=== PATIENT | male | born 1970 | race Caucasian/White ===

== ENCOUNTER 2017-01-02 17:42 | Emergency (ER) | payer BC ==
[2017-01-02 18:35] VITALS: BP 147/105
--- NOTE | 2017-01-02 18:49 | UC ---
Ear Complaint HPI - HPI Summary HPI Summary: resent URI, had some nasal congestion and used erasmo pot--this afternoon increasing ear pain, righ maxillary sinus pain, and swollen lymph right side on jaw/neck - History of Current Complaint Chief Complaint: UCEar Stated Complaint: EAR ACHE Time Seen by Provider: 01/02/17 18:44 Hx Obtained From: Patient Onset/Duration: Gradual Onset, Lasting Days, Worse Since - today Severity Initially: Mild Severity Currently: Moderate Pain Intensity: 8 Pain Scale Used: 0-10 Numeric Aggravating Factors: Nothing Alleviating Factors: Nothing Associated Signs/Symptoms: Positive: Swelling @ - right anterior cervical lymph , URI Symptoms - Allergies/Home Medications Allergies/Adverse Reactions: Allergies Allergy/AdvReac Type Severity Reaction Status Date / Time Sulfa Antibiotics Allergy Eyes Verified 12/23/14 10:25 Itchy/Swollen/Red/Watery Home Medications: Home Medications [id number] [Nyquil Severe Cold/Flu 5-6.25-10-325 mg/15Ml] 1 liq PO 01/02/17 [History] PMH/Surg Hx/FS Hx/Imm Hx Previously Healthy: Yes Endocrine History Of: Denies: Diabetes, Thyroid Disease Cardiovascular History Of: Denies: Cardiac Disorders, Hypertension Respiratory History Of: Denies: COPD, Asthma GI/ History Of: Denies: Ulcer - Surgical History Surgical History: Yes Surgery Procedure, Year, and Place: ankle reconstruction; nasal fracture; wisdom teeth - Family History Known Family History: Positive: None Family History: no reported cardiovascular issues in family lineage - Social History Occupation: Employed Full-time Lives: With Family Alcohol Use: Weekly Substance Use Type: None Smoking Status (MU): Former Smoker Have You Smoked in the Last Year: No When Did the Patient Quit Smoking/Using Tobacco: 15 yrs Review of Systems Constitutional: Negative Skin: Negative Eyes: Negative ENT: Ear Ache - right Respiratory: Negative Cardiovascular: Negative Gastrointestinal: Negative Genitourinary: Negative Motor: Negative Neurovascular: Negative Musculoskeletal: Negative Neurological: Negative Psychological: Negative All Other Systems Reviewed And Are Negative: Yes Physical Exam Triage Information Reviewed: Yes Appearance: Well-Appearing, No Pain Distress, Well-Nourished Vital Signs: Initial Vital Signs Temp 97.6 F 01/02/17 18:31 Pulse 55 01/02/17 18:31 Resp 18 01/02/17 18:31 BP 147/105 01/02/17 18:31 Pulse Ox 98 01/02/17 18:31 Vital Signs Reviewed: Yes Eye Exam: Normal Eyes: Positive: Conjunctiva Clear ENT Exam: Normal - anterior cervical lymph swelling ENT: Positive: Normal ENT inspection, Hearing grossly normal, Pharynx normal, TMs normal, Other:. Negative: Nasal congestion, Nasal drainage, Tonsillar swelling, Tonsillar exudate, Trismus, Muffled/hoarse voice Dental Exam: Normal Neck exam: Normal Neck: Positive: Supple, Nontender, No Lymphadenopathy Respiratory Exam: Normal Respiratory: Positive: Chest non-tender, Lungs clear, Normal breath sounds, No respiratory distress, No accessory muscle use Cardiovascular Exam: Normal Cardiovascular: Positive: RRR, No Murmur, Pulses Normal, Brisk Capillary Refill Abdominal Exam: Normal Abdomen Description: Positive: Nontender, No Organomegaly, Soft Bowel Sounds: Positive: Present Musculoskeletal Exam: Normal Musculoskeletal: Positive: Strength Intact, ROM Intact, No Edema Neurological Exam: Normal Neurological: Positive: Alert, Muscle Tone Normal Psychological Exam: Normal Psychological: Positive: Normal Response To Family Skin Exam: Normal Ear Complaint Course/Dx - Course Course Of Treatment: amoxicillin, ibuprofen, hydrocodone, increase fluids follow with pcp re-check prn - Differential Dx/Diagnosis Differential Diagnosis/HQI/PQRI: Cellulitis, Otitis Externa, Otitis Media, URI, Other - anterior cervical lymphadenopathy Provider Diagnoses: Right anterior cervical lymphadenopathy Discharge - Discharge Plan Condition: Stable Disposition: HOME Prescriptions: Amoxicillin CAP* 500 mg PO TID #30 cap HYDROcodone/ACETAMIN 5-325 MG* [Thiells 5-325 TAB*] 1 tab PO Q6H PRN #10 tab MDD 4 PRN Reason: pain Patient Education Materials: Lymphadenopathy (ED), DASH Eating Plan (ED), Hypertension (ED) Referrals: Cody Newsome MD [Primary Care Provider] - 5 Days
== END 2017-01-02 19:40 | disposition home or self-care (01) ==
LOC: UCEAST 17:42
DX: R59.0 Localized enlarged lymph nodes (principal); Z88.2 Allergy status to sulfonamides; Z87.891 Personal history of nicotine dependence
CPT/HCPCS: 99212; G0463

== ENCOUNTER 2017-01-09 17:20 | Emergency (ER) | payer BC ==
--- NOTE | 2017-01-09 18:01 | UC ---
Throat Pain/Nasal Donald HPI - HPI Summary HPI Summary: Continues to have "pressure" and pain over tonsillar lymph node region of neck. Was seen here for same 1 week ago, put on amox 500mg TID. Sx persist, so coming back for a recheck. Had "flu" symptoms in the 2 weeks before initial visit, did not have flu swab done. - History of Current Complaint Chief Complaint: UCRespiratory Stated Complaint: SWOLLEN GLANDS Time Seen by Provider: 01/09/17 17:40 Hx Obtained From: Patient Onset/Duration: Gradual Onset, Lasting Days Severity: Mild Cough: None Associated Signs & Symptoms: Positive: FB Sensation - in throat - Allergies/Home Medications Allergies/Adverse Reactions: Allergies Allergy/AdvReac Type Severity Reaction Status Date / Time Sulfa Antibiotics Allergy Eyes Verified 01/09/17 17:49 Itchy/Swollen/Red/Watery KOM[place] Allergy Severe FACIAL Uncoded 01/09/17 17:49 SWELLING PMH/Surg Hx/FS Hx/Imm Hx Endocrine History Of: Denies: Diabetes, Thyroid Disease Cardiovascular History Of: Denies: Cardiac Disorders, Hypertension Respiratory History Of: Denies: COPD, Asthma GI/ History Of: Denies: Ulcer - Surgical History Surgical History: Yes Surgery Procedure, Year, and Place: ankle reconstruction; nasal fracture; wisdom teeth - Family History Known Family History: Positive: None Family History: no reported cardiovascular issues in family lineage - Social History Lives: With Family Alcohol Use: Occasionally Alcohol Amount: 4-5 BEERS/WEEK Substance Use Type: None Smoking Status (MU): Former Smoker Have You Smoked in the Last Year: No When Did the Patient Quit Smoking/Using Tobacco: 15 yrs Review of Systems Constitutional: Negative Skin: Negative Eyes: Negative ENT: Sore Throat Respiratory: Negative Cardiovascular: Negative Gastrointestinal: Negative Genitourinary: Negative Motor: Negative Neurovascular: Negative Musculoskeletal: Negative Neurological: Negative Psychological: Negative All Other Systems Reviewed And Are Negative: Yes Physical Exam Triage Information Reviewed: Yes Appearance: Well-Appearing, No Pain Distress, Well-Nourished Vital Signs: Initial Vital Signs Temp 97.6 F 01/09/17 17:42 Pulse 53 01/09/17 17:42 Resp 16 01/09/17 17:42 BP 162/111 01/09/17 17:42 Pulse Ox 98 01/09/17 17:42 Vital Signs Reviewed: Yes Eye Exam: Normal Eyes: Positive: Conjunctiva Clear ENT: Positive: Normal ENT inspection, Hearing grossly normal, Pharynx normal. Negative: Pharyngeal erythema, Nasal drainage, Tonsillar swelling, Tonsillar exudate Dental Exam: Normal Neck: Positive: Supple, No Lymphadenopathy, Tenderness @ - sensitive over tonsillar lymph nodes. While they were palpable, I did not appreciate any enlargement. Respiratory Exam: Normal Respiratory: Positive: Chest non-tender, Lungs clear, Normal breath sounds, No respiratory distress, No accessory muscle use Cardiovascular Exam: Normal Cardiovascular: Positive: RRR, No Murmur Musculoskeletal Exam: Normal Neurological Exam: Normal Psychological Exam: Normal Skin Exam: Normal Throat Pain/Nasal Course/Dx - Differential Dx/Diagnosis Provider Diagnoses: Cervical lymph node discomfort Discharge - Discharge Plan Condition: Stable Disposition: HOME Patient Education Materials: Lymphadenopathy (ED) Referrals: Cody Newsome MD [Primary Care Provider] - 4 Days Additional Instructions: In addition to your concerns about your painful lymph nodes, please discuss your elevated blood pressure readings with Dr. Newsome on Thursday. If your symptoms are not resolving on their own, you may need to see an ear, nose, and throat specialist for further care.
[2017-01-09 18:40] VITALS: BP 160/113
[2017-01-10 12:34] LABS: EBV Response YES
[2017-01-10 12:41] LABS: Hematocrit 46 % (42-52); Mean Corpuscular HGB Conc 35 g/dl (31-36); Mean Corpuscular Hemoglobin 30 pg (27-31); Mean Corpuscular Volume 85 fL (80-94); Mean Platelet Volume 9 um3 (7.4-10.4); Red Blood Count 5.39 10^6/ul (4.0-5.4); Red Cell Distribution Width 14 % (10.5-15); White Blood Count 6.3 10^3/ul (3.5-10.8)
[2017-01-10 12:49] LABS: Manual Entry Verification DOM0004; Mono Internal Control QC Line Present
[2017-01-10 12:52] LABS: Albumin 4.6 g/dL (3.2-5.2); BUN/Creatinine Ratio 20.4 (8-20); Calcium 9.6 mg/dL (8.6-10.3); EGFR African American 99.1 (>60); EGFR Non-African American 77.1 (>60); Globulin 2.4 g/dL (2-4); Potassium 4.3 mmol/L (3.5-5.0); Total Bilirubin 0.6 mg/dL (0.2-1.0)
[2017-01-13 12:35] LABS: EBV Capsid Ag IgG Ab Positive (Negative); EBV Capsid Ag IgM Ab Negative (Negative)
== END 2017-01-09 18:40 | disposition home or self-care (01) ==
LOC: UCEAST 17:20
DX: R59.0 Localized enlarged lymph nodes (principal); Z88.2 Allergy status to sulfonamides; Z87.891 Personal history of nicotine dependence
CPT/HCPCS: 36415; 80053; 85025; 86308; 86664; 86665; 87651; 99211; G0463

== ENCOUNTER 2017-02-28 12:54 | Emergency (ER) | payer BC ==
[2017-02-28 14:10] VITALS: BP 144/105
--- NOTE | 2017-02-28 15:02 | UC ---
Throat Pain/Nasal Donald HPI - HPI Summary HPI Summary: Recurrent pain and swelling in R neck at same place he has had painful lump on and off since early December. Was seen here twice in Dec for same thing. It nearly went away (but never completely), and has been getting worse over the last week or so. Also feeling pain in R upper rear molar. - History of Current Complaint Chief Complaint: UCGeneralIllness Stated Complaint: SWELLING IN NECK Time Seen by Provider: 02/28/17 14:24 Hx Obtained From: Patient Onset/Duration: Gradual Onset, Lasting Weeks Cough: None Associated Signs & Symptoms: Positive: Negative - Allergies/Home Medications Allergies/Adverse Reactions: Allergies Allergy/AdvReac Type Severity Reaction Status Date / Time Sulfa Antibiotics Allergy Eyes Verified 02/28/17 14:10 Itchy/Swollen/Red/Watery KOM[place] Allergy Severe FACIAL Uncoded 02/28/17 14:10 SWELLING PMH/Surg Hx/FS Hx/Imm Hx Endocrine History Of: Denies: Diabetes, Thyroid Disease Cardiovascular History Of: Reports: Hypertension - no meds Denies: Cardiac Disorders Respiratory History Of: Denies: COPD, Asthma GI/ History Of: Denies: Ulcer - Surgical History Surgical History: Yes Surgery Procedure, Year, and Place: ankle reconstruction; nasal fracture; wisdom teeth - Family History Known Family History: Positive: None Family History: no reported cardiovascular issues in family lineage - Social History Occupation: Employed Full-time Lives: With Family Alcohol Use: Occasionally Alcohol Amount: 4-5 BEERS/WEEK Substance Use Type: None Smoking Status (MU): Former Smoker Have You Smoked in the Last Year: No When Did the Patient Quit Smoking/Using Tobacco: 15 yrs Review of Systems Constitutional: Negative Skin: Negative Eyes: Negative ENT: Other - painful lump R neck Respiratory: Negative Cardiovascular: Negative Gastrointestinal: Negative Genitourinary: Negative Motor: Negative Neurovascular: Negative Musculoskeletal: Negative Neurological: Negative Psychological: Negative All Other Systems Reviewed And Are Negative: Yes Physical Exam Triage Information Reviewed: Yes Appearance: Well-Appearing, Well-Nourished, Pain Distress - mild Vital Signs: Initial Vital Signs Temp 97.7 F 02/28/17 14:06 Pulse 61 02/28/17 14:06 Resp 18 02/28/17 14:06 BP 144/105 02/28/17 14:06 Pulse Ox 98 02/28/17 14:06 Vital Signs Reviewed: Yes Eye Exam: Normal Eyes: Positive: Conjunctiva Clear ENT Exam: Normal ENT: Positive: Normal ENT inspection, Hearing grossly normal, Pharynx normal, TMs normal Dental: Positive: Percussion Tenderness @ - very mild, #2 Neck: Positive: Tenderness @ - R anterior cervical lymph node, Enlarged Nodes @ - R anterior cervical lymph node Respiratory Exam: Normal Respiratory: Positive: Chest non-tender, Lungs clear, Normal breath sounds, No respiratory distress, No accessory muscle use Cardiovascular Exam: Normal Cardiovascular: Positive: RRR, No Murmur Musculoskeletal Exam: Normal Neurological Exam: Normal Neurological: Positive: Alert Psychological Exam: Normal Skin Exam: Normal Throat Pain/Nasal Course/Dx - Differential Dx/Diagnosis Provider Diagnoses: Recurrent R anterior cervical lymphadenopathy. R posterior dental pain Discharge - Discharge Plan Condition: Stable Disposition: HOME Prescriptions: Indomethacin CAP* [Indocin CAP*] 50 mg PO TID PRN #21 cap PRN Reason: Pain Penicillin VK TAB 500 MG(NF) [Penicillin VK 500 mg Tab(NF)] 500 mg PO QID #28 tab traMADol TAB* [Ultram*] 50 mg PO Q6HR PRN #8 tab MDD 4 PRN Reason: Pain Patient Education Materials: Lymphadenopathy (ED), Toothache (ED) Referrals: Michele Meléndez MD [Medical Doctor] - 2 Weeks Cody Newsome MD [Primary Care Provider] - Additional Instructions: Please see your dentist as soon as possible and call the ear, nose, and throat specialist on Thursday for a follow-up exam. You will need further testing to help figure out why you keep getting this painful lump in your neck. Please call and get me a message after noon on Thursday if the medications I have prescribed are not helping enough with your pain that you can sleep and complete normal daily tasks.
== END 2017-02-28 14:58 | disposition home or self-care (01) ==
LOC: UCEAST 12:54
DX: R59.0 Localized enlarged lymph nodes (principal); K08.89 Other specified disorders of teeth and supporting structures; I10 Essential (primary) hypertension; Z87.891 Personal history of nicotine dependence; Z88.2 Allergy status to sulfonamides
CPT/HCPCS: 99212; G0463